=== PATIENT | female | born 1975 | race Two or more races ===

== ENCOUNTER 2022-12-09 04:05 | Inpatient (IN) | payer MEDICAID ==
[~2022-12-09] VITALS: Ht 160 cm; Wt 97.8 kg
[2022-12-09 04:36] LABS: Basophils # (auto) 0.1 10 ^3/uL (0-0.2); Basophils % (auto) 0.6 % (0.0-2.0); Eosinophils # (auto) 0 10 ^3/uL (0-0.8); Eosinophils % (auto) 0.5 % (0.0-7.0); Hematocrit 38.9 % (36.0-46.0); Hemoglobin 13.3 g/dL (12.2-16.2); Lymphocytes # (auto) 1.8 10 ^3/uL (0.4-5.4); Lymphocytes % (auto) 21.3 % (10.0-50.0); Mean Corpuscular Hemoglobin 28.6 pg (28.0-32.0); Mean Corpuscular Hgb Conc. 34.2 g/dL (32.0-36.0); Mean Corpuscular Volume 83.7 fL (80.0-100.0); Monocytes # (auto) 0.3 10 ^3/uL (0-1.3); Monocytes % (auto) 3.8 % (0.0-12.0); Neutrophils # (auto) 6.3 10 ^3/uL (1.6-8.6); Neutrophils % (auto) 73.8 % (37.0-80.0); Red Blood Cells 4.64 10^6/uL (4.0-5.20); Red Cell Distribution Width 13.9 % (11.8-14.3); White Blood Cell 8.5 10^3/uL (4.4-10.8)
[2022-12-09 04:51] LABS: INR 0.98 (0.9-1.15); Partial Thromboplastin Time 31.4 SEC (24.5-34.5); Prothrombin Time 10.3 sec (9.3-11.8)
[2022-12-09 04:58] LABS: Alanine Aminotransferase 10 U/L (7-40); Albumin 4.7 g/dL (3.2-4.8); Alkaline Phosphatase 75 U/L (46-116); Anion Gap 6 (5-15); Aspartate Aminotransferase 10 U/L (13-40); BUN/Creatinine Ratio 8.2 (10.0-20.0); Bilirubin, Total 0.7 mg/dL (0.2-1.0); Blood Urea Nitrogen 7 mg/dL (9-23); Calcium 9.4 mg/dL (8.7-10.4); Carbon Dioxide 24 mmol/L (20-30); Chloride 105 mmol/L (98-107); Glucose 112 mg/dL (74-106); Magnesium 1.9 mg/dL (1.6-2.6); Potassium 3.8 mmol/L (3.5-5.1); Sodium 135 mmol/L (136-145); Total Protein 7.6 g/dL (5.7-8.2)
[2022-12-09 05:00] VITALS: PULSE 69; RESP 16; O2SAT 98
[2022-12-09 05:16] LABS: Urine Bacteria NONE SEEN /hpf (None Seen); Urine Blood TRACE /uL (Negative); Urine Clarity Clear (Clear); Urine Color Colorless (Yellow); Urine Protein, UAD Negative (Negative); Urine Specific Gravity 1.007 (1.001-1.035); Urine Urobilinogen Normal (Negative); Urine WBC 1 /hpf (0 - 5)
[2022-12-09] MEDS ORDERED: NITROGLYCERIN 0.4 MG SL TAB SL ONE (07:00)
[2022-12-09] MEDS ORDERED: ASPirin 325 MG TAB PO ONE (07:00)
[2022-12-09 07:28] VITALS: PULSE 70; RESP 16; O2SAT 99
[2022-12-09] MEDS ORDERED: NITROGLYCERIN 0.4 MG SL TAB SL PRN (09:45)
[2022-12-09] MEDS ORDERED: MORPHINE SULFATE INJ 2 MG/ml SYRG IV PRN (09:45)
[2022-12-09] MEDS: amLODIPine BESYLATE 5 MG TAB PO SCH (10:11)
[2022-12-09 10:42] LABS: Triglycerides 85 mg/dL (< 150)
[2022-12-09 10:43] LABS: LDL Cholesterol 122 mg/dL (< 100)
[2022-12-09 10:44] LABS: Cholesterol 195 mg/dL (< 200); HDL Cholesterol 62 mg/dL (40-59)
[2022-12-09] MEDS ORDERED: ATORVASTATIN 20 MG TAB PO ONE (10:45)
[2022-12-09] MEDS ORDERED: HEPARIN SODIUM (PORCINE) 5000 UNITS/ML 1ML VIAL IV ONE (11:00)
[2022-12-09 11:01] LABS: Folate (Folic Acid) 12.03 ng/mL (>5.38)
[2022-12-09 11:02] VITALS: PULSE 88; RESP 16; O2SAT 97
[2022-12-09] MEDS ORDERED: LEVO100T8 PO (11:38)
[2022-12-09] MEDS ORDERED: AMLO1TAB22 PO (11:38)
[2022-12-09] MEDS: PANTOPRAZOLE 40 MG TAB PO SCH (13:14)
[2022-12-09 16:45] VITALS: BP 111/76; PULSE 61; RESP 19; TEMP 98.1; O2SAT 99
[2022-12-09] MEDS ORDERED: ERGOCALCIFEROL 50,000 UNIT(1.25MG) CAP PO SCH (17:45)
[2022-12-09 20:00] VITALS: PULSE 78; PULSE 98; RESP 18; O2SAT 99
[2022-12-09] MEDS: ACETAMINOPHEN 325 MG TAB PO PRN (20:59)
[2022-12-09 22:00] VITALS: BP 125/75; PULSE 78; RESP 22; TEMP 97.6; O2SAT 99
[2022-12-10 05:00] VITALS: BP 109/66; PULSE 80; RESP 22; TEMP 97.6; O2SAT 98
[2022-12-10 06:55] LABS: Basophils # (auto) 0.1 10 ^3/uL (0-0.2); Eosinophils # (auto) 0.2 10 ^3/uL (0-0.8); Eosinophils % (auto) 2.8 % (0.0-7.0); Hematocrit 40.4 % (36.0-46.0); Hemoglobin 13.6 g/dL (12.2-16.2); Lymphocytes # (auto) 2.4 10 ^3/uL (0.4-5.4); Lymphocytes % (auto) 33.4 % (10.0-50.0); Mean Corpuscular Hemoglobin 28.4 pg (28.0-32.0); Mean Corpuscular Hgb Conc. 33.7 g/dL (32.0-36.0); Mean Corpuscular Volume 84.4 fL (80.0-100.0); Monocytes # (auto) 0.4 10 ^3/uL (0-1.3); Neutrophils # (auto) 4.1 10 ^3/uL (1.6-8.6); Neutrophils % (auto) 56.8 % (37.0-80.0); Red Blood Cells 4.79 10^6/uL (4.0-5.20); White Blood Cell 7.2 10^3/uL (4.4-10.8)
[2022-12-10] MEDS ORDERED: LEVOTHYROXINE SODIUM 50 MCG TAB PO SCH (07:00)
[2022-12-10 07:13] LABS: Albumin 4.2 g/dL (3.2-4.8); Alkaline Phosphatase 63 U/L (46-116); Anion Gap 8 (5-15); Aspartate Aminotransferase 12 U/L (13-40); BUN/Creatinine Ratio 7.9 (10.0-20.0); Blood Urea Nitrogen 7 mg/dL (9-23); Calcium 8.9 mg/dL (8.5-10.1); Carbon Dioxide 25 mmol/L (20-30); Chloride 105 mmol/L (98-107); Glucose 82 mg/dL (74-106); Potassium 4.1 mmol/L (3.5-5.1); Sodium 138 mmol/L (136-145)
[2022-12-10 07:14] LABS: Bilirubin, Total 1.3 mg/dL (0.2-1.0); Total Protein 6.8 g/dL (5.7-8.2)
[2022-12-10 07:24] LABS: Alanine Aminotransferase 9 U/L (7-40)
[2022-12-10 08:00] VITALS: BP 126/81; PULSE 74; PULSE 79; RESP 18; TEMP 97.7; O2SAT 98
[2022-12-10 09:00] VITALS: BP 126/81; PULSE 79; RESP 18; TEMP 97.7; O2SAT 98
[2022-12-10] MEDS ORDERED: ASPirin 81 mg TAB PO SCH (10:00)
[2022-12-10] MEDS ORDERED: ENOXAPARIN SOD 40 MG/0.4 ML SYRINGE SC SCH (10:00)
[2022-12-10] MEDS: PANTOPRAZOLE 40 MG TAB PO SCH (10:14)
[2022-12-10] MEDS: amLODIPine BESYLATE 5 MG TAB PO SCH (10:14)
[2022-12-10] MEDS: ACETAMINOPHEN 325 MG TAB PO PRN (10:23)
[2022-12-10 13:00] VITALS: BP 119/82; PULSE 81; RESP 18; TEMP 98.1; O2SAT 100
[2022-12-10] MEDS ORDERED: ATOR20TA50 PO (14:30)
[2022-12-10] MEDS ORDERED: ASPI-325 PO (14:30)
[2022-12-10 14:42] VITALS: BP 126/81; TEMP 36.7
[2022-12-10] MEDS ORDERED: ATORVASTATIN 20 MG TAB PO SCH (22:00)
[2022-12-12 10:51] LABS: Hepatitis B Surface Antigen Negative (Negative)
[2022-12-12 11:12] LABS: Hepatitis C Antibody Negative (Negative)
== END 2022-12-10 15:44 | disposition home or self-care (01) | DRG 198 ==
LOC: EDBD 04:05 → ER 04:05 → TELE 09:53 → TELE-WESTW 11:18
PROVIDERS: ADMIT Internal Medicine; ATTEND Student in an Organized Health Care Education/Training Program
DX: I24.9 Acute ischemic heart disease, unspecified (principal); E03.9 Hypothyroidism, unspecified; E55.9 Vitamin D deficiency, unspecified; E66.01 Morbid (severe) obesity due to excess calories; E78.5 Hyperlipidemia, unspecified; I10 Essential (primary) hypertension; Z83.3 Family history of diabetes mellitus; Z90.49 Acquired absence of other specified parts of digestive tract; F41.9 Anxiety disorder, unspecified; Z68.37 Body mass index [BMI] 37.0-37.9, adult; R00.0 Tachycardia, unspecified
CPT/HCPCS: 36415; 71045; 80053; 80061; 81001; 82306; 82607; 82746; 83036; 83735; 83880; 84443; 84484; 85025; 85379; 85610; 85730; 86803; 87340; 93005; 93306; 96372; G0378

== ENCOUNTER 2023-07-24 12:39 | Emergency (ER) | payer MEDICAID ==
[~2023-07-24] VITALS: Ht 160 cm; Wt 84.7 kg
[~2023-07-24 12:39] MED LIST: AMLO1TAB22 PO; ASPI-325 PO; ATOR20TA50 PO; LEVO100T8 PO
[2023-07-24] MEDS ORDERED: PANT40TA2 PO (15:33)
[2023-07-24] MEDS: MAALOX PLUS or MAALOX 30 ML PO ONE (15:51)
[2023-07-24 16:02] VITALS: PULSE 78; RESP 16; O2SAT 97
[2023-07-24] MEDS: SODIUM CHLORIDE 0.9% 1,000 ML IV ONE (16:30)
[2023-07-24 17:39] VITALS: BP 148/80; PULSE 63; RESP 16; TEMP 97.7; O2SAT 100
== END 2023-07-24 17:43 | disposition home or self-care (01) ==
LOC: ER 12:39
DX: R13.10 Dysphagia, unspecified (principal); I10 Essential (primary) hypertension; Z90.49 Acquired absence of other specified parts of digestive tract; Z79.899 Other long term (current) drug therapy
CPT/HCPCS: 82962; 96360; 99283; J7030

== ENCOUNTER 2023-07-30 01:20 | Inpatient (IN) | payer MEDICAID ==
[~2023-07-30] VITALS: Ht 160 cm; Wt 86.4 kg
[~2023-07-30 01:20] MED LIST changes: +FLUC150T47 PO; +PANT40TA2 PO
[2023-07-30] MEDS: PANTOPRAZOLE 40 MG/10 ML VIAL INJ IV ONE (05:30)
[2023-07-30] MEDS: SODIUM CHLORIDE 0.9% 1,000 ML IV ONE (05:30)
[2023-07-30 05:34] LABS: Chloride 108 mmol/L (98-107); Potassium 3.7 mmol/L (3.5-5.1); Sodium 139 mmol/L (136-145)
[2023-07-30 05:35] LABS: Anion Gap 7 (5-15); Calcium 9.9 mg/dL (8.7-10.4); Carbon Dioxide 24 mmol/L (20-30)
[2023-07-30 05:38] LABS: Basophils # (auto) 0 10 ^3/uL (0-0.2); Basophils % (auto) 0.8 % (0.0-2.0); Eosinophils # (auto) 0.1 10 ^3/uL (0-0.8); Eosinophils % (auto) 1.2 % (0.0-7.0); Hematocrit 37.3 % (36.0-46.0); Hemoglobin 12.7 g/dL (12.2-16.2); Lymphocytes # (auto) 1.8 10 ^3/uL (0.4-5.4); Lymphocytes % (auto) 29.4 % (10.0-50.0); Mean Corpuscular Hemoglobin 28.1 pg (28.0-32.0); Mean Corpuscular Volume 82.8 fL (80.0-100.0); Monocytes # (auto) 0.4 10 ^3/uL (0-1.3); Monocytes % (auto) 6.6 % (0.0-12.0); Neutrophils # (auto) 3.9 10 ^3/uL (1.6-8.6); Red Blood Cells 4.51 10^6/uL (4.0-5.20); Red Cell Distribution Width 13.7 % (11.8-14.3); White Blood Cell 6.2 10^3/uL (4.4-10.8)
[2023-07-30 05:40] LABS: BUN/Creatinine Ratio 7.7 (10.0-20.0); Blood Urea Nitrogen 6 mg/dL (9-23); Glucose 90 mg/dL (74-106)
[2023-07-30 08:23] VITALS: PULSE 64; RESP 14; O2SAT 96
[2023-07-30] MEDS ORDERED: HYDROcodone-ACET 5/325MG TAB PO PRN (09:00)
[2023-07-30] MEDS ORDERED: ACETAMINOPHEN 325 MG TAB PO PRN (09:00)
[2023-07-30] MEDS ORDERED: DOCUSATE SOD 100 MG CAP PO PRN (09:00)
[2023-07-30] MEDS: ENOXAPARIN SOD 40 MG/0.4 ML SYRINGE SC SCH (10:00)
[2023-07-30 10:02] LABS: INR 1.15 (0.9-1.15); Prothrombin Time 12.1 sec (9.3-11.8)
[2023-07-30 11:39] VITALS: BP 141/86; PULSE 72; RESP 18; TEMP 98.6; O2SAT 97
[2023-07-30 12:53] LABS: Urine Bacteria FEW /hpf (None Seen); Urine Blood Negative /uL (Negative); Urine Clarity Clear (Clear); Urine Color Light-Yellow (Yellow); Urine Hyaline Cast FEW /lpf (0 - 2); Urine Mucus FEW (None Seen); Urine Protein, UAD Negative (Negative); Urine Specific Gravity 1.019 (1.001-1.035); Urine Urobilinogen Normal (Negative); Urine WBC 2 /hpf (0 - 5); Urine pH 5.5 (5.0-9.0)
[2023-07-30] MEDS: SODIUM CHLOR 0.9% PF (SALINE LOCK) 10ML VIAL/SYR IV SCH (14:00)
[2023-07-30 17:00] VITALS: BP 149/92; PULSE 64; RESP 16; TEMP 98.6; O2SAT 99
[2023-07-30] MEDS: HYDROmorphone HCL 2 MG/ML VL/or syr IV PRN (17:41)
[2023-07-30 20:39] VITALS: BP 127/90; PULSE 77; RESP 15; TEMP 98.1; O2SAT 96
[2023-07-31] VITALS (7 sets, daily range): BP systolic 111–140; BP diastolic 70–88; PULSE 57–94; RESP 15–20; TEMP 97.3–98.1; O2SAT 96–99
[2023-07-31] MEDS: ONDANSETRON HCL 4 MG/2 ML VIAL IV PRN (01:54)
[2023-07-31 08:05] LABS: INR 1.1 (0.9-1.15); Partial Thromboplastin Time 31.9 SEC (24.5-34.5); Prothrombin Time 11.6 sec (9.3-11.8)
[2023-07-31] MEDS: FAMOTIDINE (10MG/ML) 2ML VL IV SCH (09:16)
[2023-07-31] MEDS ORDERED: fentaNYL CITRATE 100 MCG/2 ML VL ONE (11:23)
[2023-07-31] MEDS ORDERED: GLYCOPYRROLATE 0.2 MG/ML 1ML VIAL ONE (11:24)
[2023-07-31] MEDS ORDERED: PROPOFOL 10 MG/ML 20 ML IV ONE (11:24)
[2023-07-31] MEDS ORDERED: ONDANSETRON HCL 4 MG/2 ML VIAL ONE (11:24)
[2023-07-31] MEDS ORDERED: MIDAZOLAM HCL 2MG/2ML 2ml VIAL (1mg/ml) ONE (11:24)
[2023-07-31] MEDS ORDERED: HYDROmorphone HCL 2 MG/ML VL/or syr IV PRN (12:00)
[2023-07-31] MEDS ORDERED: ONDANSETRON HCL 4 MG/2 ML VIAL IV ONE (12:00)
[2023-07-31] MEDS ORDERED: SUCR1SUS26 PO (16:35)
[2023-07-31] MEDS: SUCRALFATE 1 GM/10 ML ORAL SUSP GT SCH (22:18)
[2023-07-31] MEDS: PANTOPRAZOLE 40 MG/10 ML VIAL INJ IV SCH (22:19)
[2023-08-01] VITALS (9 sets, daily range): BP systolic 115–135; BP diastolic 67–79; PULSE 53–70; RESP 16–21; TEMP 97.3–98.3; O2SAT 96–100
[2023-08-02] VITALS (7 sets, daily range): BP systolic 115–137; BP diastolic 67–84; PULSE 51–76; RESP 17–18; TEMP 36.8; O2SAT 98–100
[2023-08-02] MEDS ORDERED: GASTROGRAFIN 120 ML SOL ONE (09:26)
[2023-08-02] MEDS ORDERED: EZ PAQUE SUSP 12OZ BTL ONE (09:26)
[2023-08-02] MEDS ORDERED: ALPR0.5T PO (16:20)
== END 2023-08-02 07:09 | disposition home or self-care (01) | DRG 243 ==
LOC: EDBD 01:20 → ER 01:20 → OVERFLOW 09:29 → WEST WING 11:24
PROVIDERS: ADMIT Internal Medicine; ATTEND Nurse Practitioner Acute Care
PROC: 0DB68ZX Excision of Stomach, Via Natural or Artificial Opening Endoscopic, Diagnostic (ICD-10-PCS; 2023-07-31)
PROC: 0DB48ZX Excision of Esophagogastric Junction, Via Natural or Artificial Opening Endoscopic, Diagnostic (ICD-10-PCS; 2023-07-31)
PROC: 0D758ZZ Dilation of Esophagus, Via Natural or Artificial Opening Endoscopic (ICD-10-PCS; 2023-07-31)
PROC: 0DB98ZX Excision of Duodenum, Via Natural or Artificial Opening Endoscopic, Diagnostic (ICD-10-PCS; principal; 2023-07-31 11:30)
DX: K22.2 Esophageal obstruction (principal); R13.14 Dysphagia, pharyngoesophageal phase; K29.90 Gastroduodenitis, unspecified, without bleeding; K29.70 Gastritis, unspecified, without bleeding; E06.3 Autoimmune thyroiditis; R13.12 Dysphagia, oropharyngeal phase; I10 Essential (primary) hypertension; K44.9 Diaphragmatic hernia without obstruction or gangrene; Z90.49 Acquired absence of other specified parts of digestive tract; Z83.3 Family history of diabetes mellitus; Z82.49 Family history of ischemic heart disease and other diseases of the circulatory system; E66.9 Obesity, unspecified; Z68.33 Body mass index [BMI] 33.0-33.9, adult
CPT/HCPCS: 36415; 71045; 71250; 74220; 80048; 81001; 81025; 84702; 85025; 85610; 85730; 86850; 86900; 86901; 87081; 93005; 96361; 96374; C9113; G0378; J2250; J2405; J2704; J3490